=== PATIENT | male | born 1990 | race Caucasian/White ===

== ENCOUNTER 2019-12-27 16:22 | Outpatient (CLI) | payer BC, SELFPAY | END 2019-12-27 16:23 | disposition home or self-care (01) | LOC: LAB 16:31 | PROVIDERS: Family Provider Family Medicine; PCP Family Medicine; Visit Provider Specialist | DX: L50.9 Urticaria, unspecified (principal); T78.3XXA Angioneurotic edema, initial encounter; X58.XXXA Exposure to other specified factors, initial encounter | CPT/HCPCS: 36415; 82785; 86003 ==

== ENCOUNTER 2020-04-26 06:00 | Outpatient (RCR) | payer BC, SELFPAY | END 2020-04-29 23:59 | disposition home or self-care (01) | LOC: GPT 06:00 | PROVIDERS: PCP Family Medicine; Visit Provider Family Medicine | DX: G89.29 Other chronic pain (principal); M54.16 Radiculopathy, lumbar region; Z47.89 Encounter for other orthopedic aftercare; M25.572 Pain in left ankle and joints of left foot | CPT/HCPCS: 97032; 97161; 97530 ==

== ENCOUNTER 2020-04-30 06:00 | Outpatient (RCR) | payer BC, SELFPAY | END 2020-05-29 23:59 | disposition home or self-care (01) | LOC: GPT 06:00 | PROVIDERS: PCP Family Medicine; Visit Provider Family Medicine | DX: G89.29 Other chronic pain (principal); M54.9 Dorsalgia, unspecified; M79.605 Pain in left leg | CPT/HCPCS: 97032; 97110; 97140; G0283 ==

== ENCOUNTER → 2020-05-03 14:52 | Outpatient (BNVA) | payer BC, SELFPAY | PROVIDERS: PCP Family Medicine; Visit Provider Family Medicine | DX: M54.5 Low back pain (principal); M79.672 Pain in left foot; G89.29 Other chronic pain | CPT/HCPCS: 72100; 73630 ==

== ENCOUNTER → 2023-05-18 10:06 | Outpatient (BNVA) | payer BC, SELFPAY | PROVIDERS: PCP Family Medicine; Visit Provider Family Medicine | DX: E66.9 Obesity, unspecified (principal); L98.9 Disorder of the skin and subcutaneous tissue, unspecified; R29.898 Other symptoms and signs involving the musculoskeletal system | CPT/HCPCS: 80053; 84439; 84443; 84550; 85025 ==

== ENCOUNTER 2023-08-24 10:14 | Outpatient (CLI) | payer BC, SELFPAY ==
--- NOTE | 2023-08-24 11:00 | USCV_ITS ---
Jonathon Bernal Jr Age: 32 Gender: M : 1990 Exam Date: 08/24/2023 10:40 Ordering Phys: Maty Méndez NP Technologist: CT [place]am [place] [facility] [place]: PROCEDURES: The venous duplex Doppler examination of both lower extremities was performed in the standard fashion. In addition, the posterior tibial and peroneal trunk were evaluated. FINDINGS: Normal 2-D Doppler and augmentation and compressibility throughout the lower extremity venous structures. Additional imaging through the proximal calf veins also reveals no thrombus. Limited evaluation of the greater saphenous vein is patent with no thrombus. CONCLUSIONS No DVT bilateral lower extremities. Dr. Lydia Fuentes DO (Electronically Signed) Final Date: 24 August 2023 13:23 S
== END 2023-08-24 10:15 | disposition home or self-care (01) ==
PROVIDERS: PCP Family Medicine; Visit Provider Nurse Practitioner Family
DX: L81.9 Disorder of pigmentation, unspecified (principal); R60.9 Edema, unspecified; R23.8 Other skin changes
CPT/HCPCS: 93970